=== PATIENT | female | born 1965 | race Caucasian/White ===

== ENCOUNTER 2020-03-01 10:22 | Observation (INO) ==
[2020-02-29 12:41] LABS: Basophils # (Auto) 0.07 K/mcL (0.00-0.30); Basophils % (Auto) 1.1 % (0.0-2.0); Eosinophils # (Auto) 0.06 K/mcL (0.00-0.70); Granulocytes % (Auto) 64.9 % (38.0-78.0); Hematocrit 42.6 % (34.1-44.9); Hemoglobin 14.3 g/dL (11.2-15.7); Lymphocytes # (Auto) 1.66 K/mcL (1.50-4.80); Lymphocytes % (Auto) 26.9 % (15.5-49.0); Mean Cell Volume 95.3 fL (80.0-100.0); Mean Corpuscular HGB Conc 33.6 g/dL (31.0-36.0); Mean Platelet Volume 9.7 fL (7.4-10.4); Monocytes # (Auto) 0.38 K/mcL (0.10-0.90); Monocytes % (Auto) 6.1 % (1.0-12.0); Platelet Count 305 K/mcL (140-440); RBC 4.47 M/mcL (3.59-5.38); Red Cell Distribution Width 13.3 % (11.5-14.5); WBC 6.2 K/mcL (4.50-11.00)
[2020-03-01] MEDS ORDERED: SCOPOLAMINE 1 PATCH PATCH TOPICAL ONE (10:48)
[2020-03-01] MEDS ORDERED: ONDANSETRON 4 MG/2 ML VIAL IV ONE (11:42)
[2020-03-01] MEDS ORDERED: DEXAMETHASONE 10 MG/ML VIAL IV ONE (11:42)
[2020-03-01] MEDS ORDERED: LIDOCAINE HCL/PF 100 MG/5 ML SYRINGE IV ONE (11:42)
[2020-03-01] MEDS ORDERED: fentaNYL 250 MCG/5 ML VIAL IV ONE (11:42)
[2020-03-01] MEDS ORDERED: SUCCINYLCHOLINE 20 MG/ML ML IV ONE (11:42)
[2020-03-01] MEDS ORDERED: KETAMINE 100 MG/ML ML IV ONE (11:42)
[2020-03-01] MEDS ORDERED: PROPOFOL 200 MG/20 ML VIAL IV ONE (11:42)
[2020-03-01] MEDS ORDERED: MIDAZOLAM 2 MG/2 ML VIAL IV ONE (11:42)
[2020-03-01] MEDS ORDERED: GLYCOPYRROLATE 0.2 MG/ML VIAL IV ONE (11:42)
[2020-03-01] MEDS ORDERED: CLINDAMYCIN 600 MG in DEXTROSE 5% IN WATER 50 ML IV ONE (12:22)
[2020-03-01] MEDS ORDERED: ACETAMINOPHEN 1,000 MG/100 ML BOTTLE IV ONE ×2 (13:14→15:35)
[2020-03-01] MEDS ORDERED: ePHEDrine 50 MG/ML AMPUL IV PRN (13:14)
[2020-03-01] MEDS ORDERED: fentaNYL 100 MCG/2 ML VIAL IV PRN (13:14)
[2020-03-01] MEDS ORDERED: METHOCARBAMOL 1,000 MG/10 ML VIAL IV PRN (13:14)
[2020-03-01] MEDS ORDERED: ONDANSETRON 4 MG/2 ML VIAL IV PRN ×3 (13:14→16:18)
[2020-03-01] MEDS ORDERED: MEPERIDINE 25 MG/ML SYRINGE IV PRN (13:14)
[2020-03-01] MEDS ORDERED: PROMETHAZINE 25 MG/ML VIAL IM PRN (13:14)
[2020-03-01] MEDS ORDERED: NALOXONE HCL 0.4 MG/ML VIAL IV PRN ×2 (13:14→15:35)
[2020-03-01] MEDS ORDERED: HYDROmorphone 2 MG/ML VIAL IV PRN ×2 (13:14→15:35)
[2020-03-01] MEDS ORDERED: IPRATROPIUM/ALBUTEROL 3 ML AMPUL.NEB NEB PRN ×2 (13:14→15:35)
[2020-03-01] MEDS ORDERED: PROMETHAZINE 25 MG/ML VIAL IV PRN ×2 (13:14→15:35)
[2020-03-01] MEDS ORDERED: diphenhydrAMINE 50 MG/ML VIAL IV PRN ×2 (13:14→15:35)
[2020-03-01] MEDS ORDERED: FLUMAZENIL 0.1 MG/ML ML IV PRN ×2 (13:14→15:35)
[2020-03-01] MEDS ORDERED: MEPERIDINE 50 MG/ML INJECTION IM PRN (13:14)
[2020-03-01] MEDS ORDERED: ATROPINE SULFATE 0.4 MG/ML VIAL IV PRN ×2 (13:14→15:35)
[2020-03-01] MEDS ORDERED: METOPROLOL TARTRATE 5 MG/5 ML VIAL IV PRN (13:14)
[2020-03-01] MEDS ORDERED: LACTATED RINGERS 1,000 ML IV SCH ×2 (13:15→15:45)
[2020-03-01] MEDS ORDERED: LIDOCAINE W/EPI 1% 20 ML VIAL IJ ONE (14:40)
[2020-03-01] MEDS ORDERED: BACITRACIN TOPICAL OINT 15 GM TUBE TOPICAL ONE (14:42)
[2020-03-01] MEDS: fentaNYL 100 MCG/2 ML VIAL IV PRN ×3 (15:20→16:09)
--- NOTE | 2020-03-01 15:37 | Internal Medicine Consult Note ---
Medical - CN: HPI - Data of Consult Consult date: 03/01/20 Requesting physician: Ced Moreno - Consult Narrative Reason for consult: Post op observation and monitoring History of present illness: Ms. Ortiz is a 54 year old F with a history of tongue cancer/anxiety disorder who underwent neck surgery with hemiglossectomy by Dr. Moreno ENT this afternoon 03/01. Patient underwent uneventful surgery and postoperatively hospitalist service was consulted for overnight monitoring while patient will continue receiving postoperative care as per ENT specialist. At the time evaluation patient is under the effect of anesthesia but able to open eyes and respond. She is under instruction not to talk per ENT. History was reviewed from the chart. No family members are present. Review of systems could not be obtained. Patient hemodynamics in the PACU was stable with sats 96%, systolics 128, respiratory rate 18. I discussed the case with Dr. Moreno in person. Reviewed past medical history. Detailed instruction regarding postoperative care/drain management, dietary recommendations/pain management were provided by ENT surgeon. CC: Ced Moreno Review of systems: Attempted but could not performed as patient is unable to talk post neck surgery with glossectomy Medical - CN: PMH Medical history: Anxiety disorder Tongue cancer Pertinent family history: Not available Social history: None available from review of medical records Medical - CN: Meds Home Medications Medication Instructions Recorded Confirmed Type ALPRAZolam [Xanax] 0.25 mg PO Q6HP PRN 02/29/20 03/01/20 History Multivitamin [One Daily Essential] 1 each PO DAILY 02/29/20 03/01/20 History Potassium 99 mg PO DAILY 02/29/20 03/01/20 History Sertraline [Zoloft] 100 mg PO DAILY 02/29/20 03/01/20 History Allergies Allergy/AdvReac Type Severity Reaction Status Date / Time skin glue Allergy Severe Swelling Uncoded 02/29/20 10:17 Medical - CN: Exam - Constitutional Vitals: Temp Pulse Resp BP Pulse Ox 97.4 F 77 16 122/68 96 03/01/20 15:25 03/01/20 15:25 03/01/20 15:25 03/01/20 15:25 03/01/20 15:25 General appearance: no acute distress Exam: Sedated Unable to talk Nondistressed Head normocephalic Eye movement symmetrical No ear nose discharge Neck postsurgical incision site stable, drain in place Regular rhythm Nonlabored breathing Nondistended abdomen No lymphedema No joint swelling Skin unremarkable Psych sedated Neuro could not performed Medical - CN: Result - Labs CBC & Chem 7: 03/02/20 04:27 03/02/20 04:27 Medical - CN: A/P (1) S/P glossectomy Status: Acute Assessment and plan: * Status post glossectomy/neck surgery-patient admitted for postoperative care/airway monitoring. Admit to monitored unit with continuous pulse o x/hourly vitals//end-tidal CO2 monitoring/monitoring for secretion and neck swelling and bleeding watch. Detailed postoperative orders as per ENT specialist Dr. Moreno. Patient is status post * Postoperative pain management as per ENT * History anxiety disorder-patient takes sertraline at home. Will be restarted once approved p.o. intake by surgeon * Full code Plan * Continue close postoperative monitoring with continuous pulse ox/end-tidal CO2/telemetry monitoring/drain output monitoring * Postoperative care to continue per directions of ENT * Oral diet as per instructions of ENT * Therapies as tolerated * Staff directed to call ENT with any concerns regarding post surgical changes including neck swelling/post op bleeding/ difficulty breathing etc
[2020-03-01] MEDS ORDERED: BISACODYL 10 MG SUPP.RECT PR PRN (16:18)
[2020-03-01] MEDS ORDERED: POTASSIUM CHLORIDE 40 MEQ in DEXTROSE 5% IN WATER 500 ML IV PRN (16:18)
[2020-03-01] MEDS: LACTATED RINGERS 1,000 ML IV SCH (18:15)
[2020-03-01] MEDS: ACETAMINOPHEN 650 MG/65 ML BOTTLE IV PRN (20:28)
[2020-03-01] MEDS: BACITRACIN TOPICAL OINT 15 GM TUBE TOPICAL SCH (22:51)
[2020-03-01] MEDS: CHLORHEXIDINE GLUCONATE 1 ML ORAL.SOL SSP SCH (22:51)
[2020-03-01] MEDS: 0.9 % SODIUM CHLORIDE 10 ML SYRINGE IV SCH (22:52)
[2020-03-02] MEDS: ACETAMINOPHEN 650 MG/65 ML BOTTLE IV PRN ×2 (01:40→10:06)
[2020-03-02] MEDS: LACTATED RINGERS 1,000 ML IV SCH (04:05)
[2020-03-02] MEDS: 0.9 % SODIUM CHLORIDE 10 ML SYRINGE IV SCH (05:28)
[2020-03-02 06:49] LABS: Hematocrit 39.3 % (34.1-44.9); Mean Cell Volume 96.3 fL (80.0-100.0); Mean Corpuscular HGB Conc 33.1 g/dL (31.0-36.0); Platelet Count 275 K/mcL (140-440); RBC 4.08 M/mcL (3.59-5.38); Red Cell Distribution Width 13.4 % (11.5-14.5); WBC 13.1 K/mcL (4.50-11.00)
[2020-03-02 07:16] LABS: ALT/SGPT 51 U/l (0-40); AST/SGOT 57 U/l (0-37); Albumin 3.8 gm/dL (3.2-5.2); Albumin/Globulin Ratio 1.4 (1.0-2.3); Alkaline Phosphatase 63 U/L (39-117); Bilirubin,Direct < 0.2 mg/dL (0.0-0.3); Bilirubin,Total 0.4 mg/dL (0.0-1.0); Blood Urea Nitrogen 8 mg/dl (6-20); Calcium 8.4 mg/dl (8.6-10.4); Carbon Dioxide 27 mmol/L (22-30); Chloride 96 mmol/L (96-108); Globulin 2.7 gm/dL (2.2-3.7); Glomerular Filtration Rate 103; Glucose 102 mg/dL (70-105); Lactate Dehydrogenase 234 U/L (94-250); Phosphorous 3.7 mg/dL (2.7-4.5); Triglycerides 160 mg/dl (<150); Uric Acid 1.9 mg/dL (2.5-8.0)
[2020-03-02] MEDS ORDERED: DEXAMETHASONE 4 MG/ML VIAL IV ONE (09:00)
[2020-03-02 09:06] LABS: Band Neutrophils % 1 % (0-10); Eosinophils % (Manual) 1 % (0-7); Lymphocytes % 12 % (15-49); Monocytes % (Manual) 1 % (1-12); Platelet Estimate NORMAL (NORMAL); RBC Morphology NORMAL (NORMAL); Segmented Neutrophils % 85 % (38-78)
--- NOTE | 2020-03-02 09:15 | Internal Med Progress Note ---
Medical - PN: Subj Patient information: Note initiated : 03/02/20 at 9:12 am Service Date, if different from initiated Date: [] Patient: Annamaria Ortiz 54 y/o F admitted on 03/01/20 for Right Hemiglossectomy And Right Modified Radical. Chief Complaint: [] Interval history: Ms. Ortiz is a 54 year old F with a history of tongue cancer/anxiety disorder who underwent neck surgery with hemiglossectomy by Dr. Moreno ENT this afternoon 03/01. Patient underwent uneventful surgery and postoperatively hospitalist service was consulted for overnight monitoring while patient will continue receiving postoperative care as per ENT specialist. At the time evaluation patient is under the effect of anesthesia but able to open eyes and respond. She is under instruction not to talk per ENT. History was reviewed from the chart. No family members are present. Review of systems could not be obtained. Patient hemodynamics in the PACU was stable with sats 96%, systolics 128, respiratory rate 18. I discussed the case with Dr. Moreno in person. Reviewed past medical history. Detailed instruction regarding postoperative care/drain management, dietary recommendations/pain management were provided by ENT surgeon. 03/02-patient seen this morning. Able to talk. Alert and oriented. Complains of significant pain needing opioids. Denies active concerns and questions. Denies shortness of breath or difficulty breathing. White count 13.1 - Constitutional Vitals: Vital Signs Temp Pulse Resp BP Pulse Ox 98.5 F 75 20 119/67 97 03/02/20 07:23 03/02/20 04:00 03/02/20 07:23 03/02/20 07:23 03/02/20 07:23 Period Temp Pulse Resp BP Sys/Pedraza Pulse Ox Last 24 Hr 97.0 F-99.8 F 71-93 15-20 103-142/64-90 87-99 Intake and Output 03/01/20 03/02/20 03/02/20 21:59 05:59 13:59 Intake Total 2860 1850 Output Total 1680 81 0 Balance 1180 1769 0 Weight 177 lb 12.8 oz Intake & Output: Intake & Output 03/01/20 03/02/20 03/02/20 21:59 05:59 13:59 Intake Total 2860 1850 Output Total 1680 81 0 Balance 1180 1769 0 Weight 177 lb 12.8 oz Intake: IV 100 1130 Lactated Ringers 1,000 ml @ 100 1000 mls/hr IV .Q10H [facility] Rx#: [id number] Oral 720 IV - Manual Only 2760 Output: Drainage 70 Lower Neck 70 Drainage 110 80 Lower Neck 110 80 Void Amount 1 # of times incontinent of urine 0 Estimated Blood Loss 1500 Other: Meal snack Percent of Meal Consumed 100% Feeding Ability Independent # Voids 1 3 1 General appearance: no acute distress Exam: Right-sided neck incision site stable without any swelling Minimal drain output No dysarthria or dysphonia Nonlabored breathing No anxiety Medical - PN: Obj Da - Labs CBC & Chem 7: 03/02/20 04:27 03/02/20 04:27 Labs: Abnormal Lab Results 03/02/20 03/02/20 04:27 04:27 WBC 13.1 H Seg Neutrophils % 85 H Lymphocytes % 12 L Uric Acid 1.9 L Calcium 8.4 L AST 57 H ALT 51 H Triglycerides 160 H Meds: Medications Bacitracin (Bacitracin Topical Oint) 1 dose TOPICAL BID [facility] Last Admin: 03/01/20 22:51 Dose: 1 dose Documented by: Bisacodyl (Dulcolax) 10 mg GA Q2-3DAYS PRN PRN Reason: Constipation Chlorhexidine Gluconate (Peridex) 10 ml SSP TID [facility] Last Admin: 03/01/20 22:51 Dose: 10 ml Documented by: Lactated Ringer's (Lactated Ringers) 1,000 mls @ 100 mls/hr IV .Q10H [facility] Last Admin: 03/02/20 04:05 Dose: 100 mls/hr Documented by: Acetaminophen (Ofirmev) 650 mg in 65 mls @ 130 mls/hr IV Q6HP PRN; Protocol PRN Reason: Per Pain Protocol/Fever > 101 Last Infusion: 03/02/20 02:21 Dose: Infused Documented by: Potassium Chloride 40 meq/ (Dextrose) 520 mls @ 130 mls/hr IV UD PRN PRN Reason: K+ = or < 3.5 Morphine Sulfate (Morphine) 3 - 5 mg IV Q4HP PRN; Protocol PRN Reason: Per Pain Protocol Last Admin: 03/02/20 07:26 Dose: 4 mg Documented by: Ondansetron HCl (Zofran) 4 mg IV Q4-6HP PRN; Protocol PRN Reason: Nausea And Vomiting Last Admin: 03/01/20 23:10 Dose: 4 mg Documented by: Sodium Chloride (Saline Flush) 10 ml IV Q8 [facility] Last Admin: 03/02/20 05:28 Dose: 10 ml Documented by: Medical - PN: A/P - Time Spent With Patient Total time spent is greater than 50% in coordination of care (as documented) at patient's floor/unit and/or counseling patient: 25 - 35 minutes (1) S/P glossectomy Status: Acute Assessment and plan: * Tongue cancer status post glossectomy/neck surgery-postoperative day 1. Co ntinuing postoperative care/airway monitoring with continuous pulse ox/hourly vitals//end-tidal CO2 monitoring/monitoring for secretion , neck swelling and bleeding watch. Managed by ENT * Postoperative pain well controlled , managed per ENT * History anxiety disorder-patient takes sertraline at home. Will be restarted once approved p.o. intake by surgeon * Full code Plan * Continue postop care per ENT * Oral diet as per instructions of ENT * Therapies as tolerated * Discharge planning per ENT * May restart Zoloft in 24 hours Current Visit: Yes Medical - PN: Qual - VTE Deep Vein Thrombosis/Pulmonary Embolism Present on Admission: No
[2020-03-02] MEDS ORDERED: OXYMETAZOLINE 1 SPRAY BOTTLE NAS ONE (09:36)
[2020-03-02] MEDS: BACITRACIN TOPICAL OINT 15 GM TUBE TOPICAL SCH (10:04)
[2020-03-02] MEDS: CHLORHEXIDINE GLUCONATE 1 ML ORAL.SOL SSP SCH (10:05)
--- NOTE | 2020-03-04 09:32 | Operative Note ---
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 PROCEDURE: 1. Hemiglossectomy right tongue. 2. Modified radical neck dissection. SURGEON: Gagan Moreno DO TOWBOAT OPERATOR: Zulay Hartman DO SPONGE COUNT: Correct. ESTIMATED BLOOD LOSS: Minimal. COMPLICATIONS: None. PROCEDURE IN DETAIL: The patient was administered general anesthetic. At that point in time, she was orally intubated. Facial nerve monitor was placed on the corner of the right mouth to monitor the margin of the mandibular nerve. After an appropriate timeout, she was given a standard prep and drape. A Stewart mouth gag was inserted in the mouth and this opened the mouth. Visualization of the right lateral tongue showed that she had a squamous cell carcinoma on the far extreme side/floor of the right mouth. A 10 mm margin was taken around fairly obvious tumor edge and was marked with Bovie cautery. This was dissected down through the mucosa and into the muscular layer of the tongue. It was dissected down deeper until the identification of the lingual nerve, which was protected and preserved. This was able to be reflected away from the dissection. With that accomplished, the 5-7 mm of musculature of the tongue was included into the hemiglossectomy. This was taken down without difficulty with Bovie cautery. Hemostasis was obtained easily with Bovie cautery and then the specimen was removed. This created a fairly large surgical defect measuring 4.5 cm x 3.5 cm in size. It was marked and oriented for specimen, and was sent off for frozen evaluation. At that point in time, the wound was then closed with 3-0 Vicryls as well as 3-0 Chromic as the second and third layer to help reapproximate mucosal edging. The edge was closed to the alveolar ridge on the floor of the mouth but there was plenty of decent tissue to close up on the ventral surface of the tongue. With that accomplished, the mouth was closed, the head was turned, and oral instruments were discarded. Clean instruments for the radical neck were then used. She was given a modified Apron incision from the mastoid prominence down to the clavicular notch. This was incised with a #15 Bard Amador blade and taken down. Subplatysmal flaps were elevated widely up towards the submental area of the chin. The great auricular nerve was sacrificed as well as the external jugular vein. Once this was accomplished, omohyoid muscle was appreciated as fascial connections over the sternocleidomastoid muscle were removed. Internal jugular vein was identified inferiorly. This was surrounded and the vessel loop was then used to control the inferior stump. Fascial connections over the sternocleidomastoid muscle and strap muscles were developed into the specimen, and this was taken up high to the anterior aspect of the chin. This was dissected down and brought back in a posterior direction until arrival of the submandibular gland. The submandibular gland was included in the specimen and reaching up underneath the mylohyoid muscle, the lingual nerve was appreciated and the parasympathetic divisions were divided. Fascial connections as well as lymphatics around the gland were appreciated and there was a metastatic lymph node in this region, which was included in the specimen. Following the __ digastric back in the posterior direction was then performed. Spinal accessory nerve was seen exiting this region, the jugular foramen moving towards the SCM muscle. This was protected and preserved. There was a metastatic lymph node in the zone 2A region. This was included in the specimen. Lymphatic tissue from behind zone 2B were included in the specimen, dissected down posteriorly and developed in the specimen as well. Finally, fascial connections low in zone 4 were developed in the specimen as well. This was moved in an anterior direction. The fascial connections including zones 2, 3, and 4 were then rolled over the jugular vein without much difficulty and zone 2A and 2B were included in the specimen. Lymphatic complex of the carotid artery as well as the vagus nerve were seen in clear view as well as cranial nerve XII which was protected and preserved. This was seen just below the specimen and was easily protected. Using a #15 Bard Amador blade, thin fascial connections over the jugular vein were removed and this was developed in the specimen as well. The specimen was finally delivered. The wound was washed and irrigated, and was found to be very hemostatic. It was pressure-tested with valsalva as well and found to be hemostatic. The specimen was marked and oriented with zone 2, 3, 4 as well as zone 1 submental region. With that accomplished, a drain was brought through a separate stab incision. The wound was closed in a layered fashion with Vicryls as well as carlos. Overall, she tolerated the procedure well and was taken back to the PACU in satisfactory condition. [email or web address] Job ID: [id number] Doc ID: [id number] Gagan Ayala DO
--- NOTE | 2020-03-06 13:00 | Surgical Pathology Report ---
HISTOLOGY SPECIMEN MICROSCOPIC DIAGNOSIS SPECIMEN A - TONGUE, RIGHT LATERAL FLOOR, RESECTION: -- INVASIVE MODERATELY DIFFERENTIATED SQUAMOUS CELL CARCINOMA, ASSOCIATED WITH HIGH-GRADE SQUAMOUS DYSPLASIA. (SEE COMMENT) - SIZE: 1.5 x 1.5 cm. - DEPTH OF INVASION: 0.3 cm. - LYMPH-VASCULAR INVASION: NOT IDENTIFIED. - PERINEURAL INVASION: NOT IDENTIFIED. - p16: NEGATIVE; NO OVER-EXPRESSION (PERFORMED ON PRIOR BIOPSY [id number], 02/14/2020). - SURGICAL MARGINS: FREE OF MALIGNANCY, MODERATE KERATINIZING SQUAMOUS DYSPLASIA INVOLVES INKED MEDIAL PERIPHERAL MARGIN AND FOCALLY INVOLVES INKED LATERAL ANTERIOR MARGIN. SPECIMEN B - LYMPH NODES, RIGHT NECK, MODIFIED RADICAL DISSECTION: -- 83 LYMPH NODES WITH PATCHY ACUTE LYMPHADENITIS AND FOCAL NECROSIS, NEGATIVE FOR MALIGNANCY. (SEE COMMENT) - SUBMANDIBULAR GLAND: MILD CHRONIC SIALOADENITIS. - LEVEL I LYMPH NODES: 12 NODES NEGATIVE FOR METASTATIC CARCINOMA. - LEVEL II LYMPH NODES: 14 LYMPH NODES NEGATIVE FOR METASTATIC CARCINOMA. - LEVEL III LYMPH NODES: 17 LYMPH NODES NEGATIVE FOR METASTATIC CARCINOMA. - LEVEL IV LYMPH NODES: 25 LYMPH NODES NEGATIVE FOR METASTATIC CARCINOMA. - LEVEL V LYMPH NODES: 15 LYMPH NODES NEGATIVE FOR METASTATIC CARCINOMA. (ACP:adj) COMMENT: The tongue resection demonstrates residual invasive carcinoma with associated moderate and severe keratinizing squamous dysplasia. Moderate keratinizing dysplasia intermittently involves the inked peripheral mucosal margin along the medial edge and focally involves the inked anterior lateral mucosal margin. A total of 83 lymph nodes are identified within the modified radical neck dissection, and all are negative for malignancy. There is patchy acute lymphadenitis with focal necrosis, suggestive of possible infection. Cancer Summary Data: Procedure: Resection of tumor Modified Radical Dissection Tumor Site: Oral - Floor of mouth and ventral tongue Laterality: Right Tumor Focality: Unifocal Tumor Size: 1.5 x 1.5 cm Depth of Invasion: 0.3 cm (3.0 mm) Histologic Type: Squamous cell carcinoma, conventional type Histologic Grade: G2/moderately differentiated Surgical Margins: Uninvolved by invasive carcinoma Moderate keratinizing dysplasia intermittently involves medial mucosal margin and focally involves the inked anterior lateral mucosal margin Lymph-Vascular Invasion: Not identified Perineural Invasion: Not identified Ancillary studies: p16: negative; no over-expression by immunohistochemistry (performed on prior biopsy [id number], 02/14/2020) Regional Lymph Nodes: Number of lymph nodes involved: 0 Number of lymph nodes examined: 83 Pathologic Stage: pT1 pN0 INTRAOPERATIVE CONSULTATION FROZEN SECTION DIAGNOSIS (Performed at [facility], [place], [place]): TONGUE, STITCH ANTERIOR, DESIGNATED 12 O'CLOCK, EXCISION: -- RESIDUAL INVASIVE SQUAMOUS CELL CARCINOMA, SURGICAL MARGINS FREE OF MALIGNANCY, INVASIVE TUMOR FOCALLY APPROXIMATES (1-2 mm) FROM 1-2 O'CLOCK SOFT TISSUE MARGIN (NEW INTERFACE WITH SKELETAL MUSCLE). -- HIGH-GRADE DYSPLASIA (FAVOR MODERATE DYSPLASIA) INVOLVES INKED MUCOSAL MARGIN AT APPROXIMATELY 4 O'CLOCK. (ACP:adj) CLINICAL HISTORY Looped - zone 4, long - zone 2B, short is six. PROCEDURAL IMPRESSION Squamous cell carcinoma of tongue. GROSS DESCRIPTION Specimen A is received fresh as tongue stitch at anterior and consists of an ellipse of mucosal tissue and underlying skeletal muscle that measures 3.1 x 2.4 x 1.5 cm. A suture is present at one apex marking the anterior tip. There is an irregular area of mucosal induration that measures approximately 1.5 x 1.5 cm. There is a more firm and elevated area is present in the anterior portion of the tissue. The surgical margins are inked black. For orientation purposes, the suture is designated 12 o'clock and the 12-3 is inked blue, 3-6 - yellow, 6-9 - green and 9-12 - orange. [employer] cross sections are submitted for frozen section analysis and for permanent sections as FSA1, FSA2 and FSA3. Two cross sections are submitted from the anterior region of the lesion, FSA3 is submitted from the posterior part of the lesion. The remaining tissue is submitted from anterior to posterior in A1-A4 (entirely submitted). Specimen B is received as right modified radical neck dissection and consists of a portion of fibroadipose tissue with numerous lymph nodes and a portion of salivary gland. Orienting sutures marking level 1, level 2B and level 4 are present. The specimen is easily oriented. Tissue from zone 1, 2, 3, 4 and 5 are present within the specimen. The submandibular is intact and measures 3.5 x 2.0 x 1.5 cm. The gland capsule has delicate fibrous adhesions. Sectioning reveals lobular parenchyma with no mass lesions. Within the remaining tissue of zone 1, there are numerous possible nodes, up to 1.5 cm in size. Within zone 2 there are numerous possible lymph nodes, up to 1.5 cm. Within zone 3 there are multiple additional possible lymph nodes, the largest measures up to 1.4 cm. Within level 5 there are also numerous lymph nodes, the largest of which measures up to 1.5 cm. Sections are submitted according to the following slide suggs: B1 - submandibular gland; B2 - three possible level 1 lymph nodes; B3 - single level 1 lymph node, trisected; B4 - three possible level 2 lymph nodes (one inked blue and trisected, one inked black and bisected); B5 - two possible level 2 nodes (one inked black and trisected, one inked blue and bisected); B6 - two possible level 2 lymph nodes; B7-B9 - level 3 lymph nodes (B8 has a single node inked black and bisected); B10-B12 - possible level 4 lymph nodes; B13-B15 - possible level 5 lymph nodes (B14 with single inked bisected node). (ACP:adj) Electronically Signed by: Neymar Lacey M.D.
== END 2020-03-02 12:04 | disposition home or self-care (01) ==
LOC: SUR 10:22 → ICU 10:22
PROVIDERS: ADMIT Internal Medicine; ATTEND Otolaryngology